=== PATIENT | female | born 2000 | race African-American/Black ===

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

== ENCOUNTER 2018-04-27 19:49 | Emergency (ER) | payer SELFPAY ==
--- NOTE | 2018-04-27 20:06 | ER Document Report ---
HPI - HPI Pain Level: 5 Notes: Patient is a 18-year-old female no significant past medical history who presents to the ED complaining of urinary burning, urgency, and frequency with suprapubic pressure that began today. Patient states that she otherwise is eating and drinking without any difficulties. She is having normal bowel movements. Patient states that she has not had any flank pain. She has no concern of STD/STI or . Denies any drug allergies. She has not had any other vaginal discharge, odor, or bleeding. Denies any headache, fever, URI , sore throat, chest pain, palpitations, syncope, cough, shortness of breath, wheeze, dyspnea, abdominal pain, nausea/vomiting/diarrhea, urinary retention, back pain, numbness/tingling, saddle anesthesia, muscle paralysis/weakness, or rash. - ROS Systems Reviewed and Negative: Yes All other systems reviewed and negative <TRAV BERTRAND - Last Filed: 04/27/18 20:47> Past Medical History - Social History Smoking Status: Never Smoker Family History: Reviewed & Not Pertinent Pulmonary Medical History: Reports: Hx Asthma Neurological Medical History: Reports: Hx Seizures - as a child Renal/ Medical History: Denies: Hx Peritoneal Dialysis - Immunizations Immunizations up to date: Yes Hx Diphtheria, Pertussis, Tetanus Vaccination: Yes <TRAV BERTRAND - Last Filed: 04/27/18 20:47> Vertical Provider Document - CONSTITUTIONAL Agree With Documented VS: Yes Notes: PHYSICAL EXAMINATION: GENERAL: Well-appearing, well-nourished and in no acute distress. LUNGS: Breath sounds clear to auscultation bilaterally and equal. No wheezes rales or rhonchi. HEART: Regular rate and rhythm without murmurs, rubs, gallops. ABDOMEN: Soft, nontender, nondistended abdomen. No guarding, no rebound. No masses appreciated. Normal bowel sounds present. No CVA tenderness bilaterally. : deferred Musculoskeletal: FROM to passive/active. Strength 5+/5. Extremities: No cyanosis, clubbing, or edema b/l. Peripheral pulses 2+. Capillary refill less than 3 seconds. NEUROLOGICAL: Normal speech, normal gait. PSYCH: Normal mood, normal affect. SKIN: Warm, Dry, normal turgor, no rashes or lesions noted. - INFECTION CONTROL TRAVEL OUTSIDE OF THE [place] IN LAST 30 DAYS: No <TRAV BERTRAND - Last Filed: 04/27/18 20:47> Course - Re-evaluation Re-evalutation: 04/27/18 20:50 Patient is an afebrile, well-hydrated, 18-year-old female who presents to the ED with dysuria. Vitals are acceptable. PE is otherwise unremarkable. Patient has no significant tachycardia, tachypnea, or hypoxia. She is tolerating p.o. without difficulties and is nontoxic-appearing. Abdomen is soft and nontender. No associated flank pain. UA/UC/Urine Preg all pending still. Patient's presentation and symptomatology does not correlate well for acute appendicitis, bowel obstruction, acute cholecystitis, acute cholangitis, perforated diverticulitis, incarcerated hernia, pancreatitis, perforated ulcer, peritonitis, sepsis, or other systemic emergent condition at this time. Patient is aware that her condition can change from initial presentation and she needs to monitor symptoms closely and seek medical attention if any acute changes. We will send her home with a prescription for Keflex if her urine suggests UTI. Other d/c instructions pending finished work up, but otherwise: Conservative measures otherwise for symptoms. Recheck with your PCM in 3-5 days. Consider consult with a urologist. Return to the ED with any worsening/ concerning symptoms otherwise as reviewed in discharge. Patient is in agreement. Care transferred to Matthew Horton [employer]AR DESIGN ENGINEER who will complete care. <TRAV BERTRAND - Last Filed: 04/27/18 20:47> - Vital Signs Vital signs: Temp Pulse Resp BP Pulse Ox 98.2 F 16 114/81 100 04/27/18 20:00 04/27/18 20:00 04/27/18 20:00 04/27/18 20:00 - Laboratory Laboratory results interpreted by me: 04/27/18 20:55 Urine Protein 100 H Urine Blood LARGE H Ur Leukocyte Esterase SMALL H <MATTHEW HORTON - Last Filed: 04/27/18 21:55> Discharge <TRAV BERTRAND - Last Filed: 04/27/18 20:47> <MATTHEW HORTON - Last Filed: 04/27/18 21:55> - Discharge Clinical Impression: Acute UTI (urinary tract infection), Dysuria Condition: Stable Disposition: HOME, SELF-CARE Instructions: Cephalexin ([facility]), Urinary Tract Infection ([facility]) Additional Instructions: Push fluids (i.e. water, cranberry juice) Proper hygenic technique Keep the skin clean Tylenol/ibuprofen as needed May use over the counter AZO for burning with urination 2-3 days Take medications as directed F/u with your PCM in 3-5 days for a recheck Consider consult with a Urologist for ongoing/worsening symptoms. Return to the ED with any worsening symptoms and/or development of fever, headache, chest pain, palpitations, syncope, shortness of breath, trouble breathing, abdominal pain, n/v/d, blood in stool/urine, loss of control of bowel /bladder, urinary retention, or other worsening symptoms that are concerning to you. Prescriptions: Cephalexin Monohydrate [Keflex 500 mg Capsule] 500 mg PO BID #14 capsule Referrals: [facility] [Provider Group] - Follow up as needed
[2018-04-27 21:19] LABS: APPEARANCE,URINE CLOUDY; BILIRUBIN,URINE NEGATIVE (NEGATIVE); COLOR,URINE AMBER; GLUCOSE, URINE NEGATIVE (NEGATIVE); KETONES,URINE NEGATIVE (NEGATIVE); LEUKOCYTE ESTERASE,URINE SMALL (NEGATIVE); NITRITE,URINE NEGATIVE (NEGATIVE); PROTEIN,URINE 100 mg/dL (NEGATIVE); UROBILINOGEN,URINE NEGATIVE mg/dL (<2.0)
[2018-04-27 22:03] VITALS: BP 111/77
== END 2018-04-27 22:03 | disposition home or self-care (01) ==
LOC: ER 19:49
DX: N39.0 Urinary tract infection, site not specified (principal); J45.909 Unspecified asthma, uncomplicated
CPT/HCPCS: 81001; 81025; 87086; 87088; 87186; 99283